=== PATIENT | female | born 1980 | race African-American/Black ===

== ENCOUNTER 2019-02-04 12:12 | Emergency (ER) | payer MEDICAID ==
[2019-02-04 12:58] VITALS: BP 116/67
--- NOTE | 2019-02-04 13:18 | UC ---
Respiratory Complaint HPI - HPI Summary HPI Summary: Cough and sore throat for one day. No fever. No itchy or watery eyes. - History of Current Complaint Chief Complaint: UCGeneralIllness Stated Complaint: COUGH,SORE THROAT Time Seen by Provider: 02/04/19 12:54 Hx Obtained From: Patient Hx Last Menstrual Period: 12/14/18 Onset/Duration: Gradual Onset, Lasting Hours Timing: Constant Severity Initially: Mild Severity Currently: Mild Pain Intensity: 2 Character: Cough: Nonproductive Aggravating Factors: Deep Breaths, Recumbent Position Alleviating Factors: Upright Position, Spontaneous Resolution Associated Signs And Symptoms: Positive: URI, Nasal Congestion. Negative: Dyspnea, Fever - Allergies/Home Medications Allergies/Adverse Reactions: Allergies Allergy/AdvReac Type Severity Reaction Status Date / Time Penicillins Allergy Swelling Verified 02/04/19 12:58 Of Face,Lips,& Throat pineapple Allergy Swelling Verified 02/04/19 12:58 Of Face,Lips,& Throat tomato Allergy Swelling Verified 02/04/19 12:58 Of Face,Lips,& Throat cholestatin Allergy Swelling Uncoded 02/04/19 12:58 Of Face,Lips,& Throat Home Medications: Home Medications Calcium Carbonate/Vitamin D3 [Calcium 600 + Vit D Tablet] 1 each PO DAILY [History Confirmed 02/04/19] Cetirizine* [ZyrTEC 10 MG TAB*] 10 mg PO DAILY 02/04/19 [History Confirmed 02/04] Tab A Dimitri Multivitamin 1 tab PO DAILY 02/04/19 [History Confirmed 02/04/19] PMH/Surg Hx/FS Hx/Imm Hx Previously Healthy: No - URI - Surgical History Surgical History: None - Family History Known Family History: Positive: Non-Contributory - Social History Alcohol Use: None Substance Use Type: None Smoking Status (MU): Heavy Every Day Tobacco Smoker Type: Cigarettes Amount Used/How Often: 1 PPD Have You Smoked in the Last Year: Yes - Immunization History Vaccination Up to Date: Yes Review of Systems All Other Systems Reviewed And Are Negative: Yes ENT: Positive: Sore Throat Respiratory: Positive: Cough Physical Exam Triage Information Reviewed: Yes Appearance: Well-Appearing, No Pain Distress, Well-Nourished Vital Signs: Initial Vital Signs Temp 97.6 F 02/04/19 12:52 Pulse 87 02/04/19 12:52 Resp 14 02/04/19 12:52 BP 116/67 02/04/19 12:52 Pulse Ox 100 02/04/19 12:52 Vital Signs Reviewed: Yes Eyes: Positive: Conjunctiva Clear. Negative: Conjunctiva Inflamed ENT: Positive: Nasal congestion, TMs normal, Uvula midline. Negative: Pharyngeal erythema, TM bulging, TM dull, TM red, Tonsillar swelling, Tonsillar exudate, Trismus Neck: Positive: Supple, Nontender, No Lymphadenopathy. Negative: Nuchal Rigidity Respiratory: Positive: Lungs clear, Normal breath sounds, No respiratory distress, No accessory muscle use. Negative: Respiratory distress, Decreased breath sounds, Accessory muscle use, Crackles, Rhonchi, Stridor, Wheezing Cardiovascular: Positive: No Murmur, Pulses Normal, Brisk Capillary Refill Abdomen Description: Positive: No Organomegaly, Soft. Negative: Distended, Guarding Musculoskeletal: Positive: Strength Intact, ROM Intact, No Edema Neurological: Positive: Alert, Muscle Tone Normal. Negative: Fatigued Psychological: Positive: Age Appropriate Behavior Skin: Negative: Rashes Respiratory Course/Dx - Differential Dx/Diagnosis Provider Diagnosis: URI (upper respiratory infection) Discharge - Sign-Out/Discharge Documenting (check all that apply): Patient Departure All imaging exams completed and their final reports reviewed: No Studies - Discharge Plan Condition: Good Disposition: HOME Prescriptions: Benzonatate CAP* [Tessalon 100 MG CAP*] 200 mg PO BID PRN #[id number] cap PRN Reason: Cough Patient Education Materials: Upper Respiratory Infection (ED) Referrals: Carmela Chakraborty NP [Primary Care Provider] - If Needed - Billing Disposition and Condition Condition: GOOD Disposition: Home
== END 2019-02-04 13:23 | disposition home or self-care (01) ==
LOC: UCCORT 12:12
DX: J06.9 Acute upper respiratory infection, unspecified (principal); F17.210 Nicotine dependence, cigarettes, uncomplicated; Z88.0 Allergy status to penicillin; Z91.018 Allergy to other foods; Z88.8 Allergy status to other drugs, medicaments and biological substances
CPT/HCPCS: 99212; G0463

== ENCOUNTER 2019-07-30 15:37 | Emergency (ER) | payer MEDICAID ==
[2019-07-30 16:40] VITALS: BP 97/62
[2019-07-30] MEDS ORDERED: Ibuprofen TAB* 600 MG PO ONE (16:59)
--- NOTE | 2019-07-30 16:59 | UC ---
Back Pain HPI - HPI Summary HPI Summary: 38-year-old woman comes in with a chief complaint of low back pain. This started 3 days ago. No known trauma. Patient points to her mid low back. When questioned she also states that she's been urinating more frequently. Denies any abdominal pain or fevers or burning with urination. She states that back pain hurts at all times. She can make it worse with different changes of position. No complaint of any weakness or numbness or difficulty controlling urine or bowels. Patient lives in a [facility]ci. - History of Current Complaint Chief Complaint: UCBackPain Stated Complaint: LOWER BACK PAIN Time Seen by Provider: 07/30/19 16:45 Hx Last Menstrual Period: "within the last month" - pt is a poor historian Pain Intensity: 10 - Allergies/Home Medications Allergies/Adverse Reactions: Allergies Allergy/AdvReac Type Severity Reaction Status Date / Time Penicillins Allergy Swelling Verified 07/30/19 16:40 Of Face,Lips,& Throat pineapple Allergy Swelling Verified 07/30/19 16:40 Of Face,Lips,& Throat tomato Allergy Swelling Verified 07/30/19 16:40 Of Face,Lips,& Throat cholestatin Allergy Swelling Uncoded 07/30/19 16:40 Of Face,Lips,& Throat Home Medications: Home Medications Fexofenadine HCl 1 tab PO DAILY 07/30/19 [History Confirmed 07/30/19] Sertraline* [Zoloft*] 50 mg PO DAILY 07/30/19 [History Confirmed 07/30/19] l-Norgest/E.estradiol-E.estrad [Camrese] 1 tab PO DAILY 07/30/19 [History Confirmed 07/30/19] PMH/Surg Hx/FS Hx/Imm Hx Previously Healthy: Yes Neurological History: Seizures - Surgical History Surgical History: Yes Surgery Procedure, Year, and Place: LEE - Family History Known Family History: Positive: Non-Contributory - Social History Alcohol Use: None Substance Use Type: None Smoking Status (MU): Heavy Every Day Tobacco Smoker Type: Cigarettes Amount Used/How Often: 1 PPD Have You Smoked in the Last Year: Yes - Immunization History Vaccination Up to Date: Yes Review of Systems All Other Systems Reviewed And Are Negative: Yes Constitutional: Positive: Negative Skin: Positive: Negative Eyes: Positive: Negative ENT: Positive: Negative Respiratory: Positive: Negative Cardiovascular: Positive: Negative Gastrointestinal: Positive: Negative Genitourinary: Positive: Frequency Motor: Positive: Negative Neurovascular: Positive: Negative Musculoskeletal: Positive: Other: - SEE HPI Neurological: Positive: Negative Psychological: Positive: Negative Is Patient Immunocompromised?: No Physical Exam Triage Information Reviewed: Yes Appearance: Well-Appearing, Well-Nourished, Pain Distress - MILD WITH ROM Vital Signs: Initial Vital Signs Temp 97.4 F 07/30/19 16:35 Pulse 76 07/30/19 16:35 Resp 18 07/30/19 16:35 BP 97/62 07/30/19 16:35 Pulse Ox 98 07/30/19 16:35 Vital Signs Reviewed: Yes Eye Exam: Normal Eyes: Positive: Conjunctiva Clear Neck: Positive: Supple Respiratory: Positive: Lungs clear, Normal breath sounds, No respiratory distress Cardiovascular: Positive: RRR Abdomen Description: Positive: Nontender, Soft. Negative: CVA Tenderness (R), CVA Tenderness (L) Musculoskeletal: Positive: Strength Intact, Other: - Patient is tender to palpation in the mid low back. Nontender to palpation of the flanks. Legs have full strength and full range of motion Neurological: Positive: Alert Psychological: Positive: Age Appropriate Behavior Skin Exam: Normal Back Pain Course/Dx - Course Course Of Treatment: Patient is most tender in the midline of the low back. Because of the patient' s special needs it does make history taking slightly more difficult. Patient denies any left-sided or right-sided pain. Denies any fevers or abdominal pain. Because the urine had white blood cells and will treat with Bactrim in case the cause of the pain is actually urinary in source. Given the midline low back tenderness to palpation it's more likely musculoskeletal and will treat with ibuprofen 600 mg every 6 hours as needed. Discussed with her caregiver that is we should have the patient follow-up within 3 days with her primary care physician and that if she worsened with fevers or she appeared ill or weakness or numbness or difficulty controlling urine or bowels or any other concerns she needs to go the emergency department. - Differential Dx/Diagnosis Provider Diagnosis: Low back pain, Pyuria Discharge ED - Sign-Out/Discharge Documenting (check all that apply): Patient Departure All imaging exams completed and their final reports reviewed: No Studies - Discharge Plan Condition: Stable Disposition: HOME Prescriptions: Sulfamethox/Trimethoprim DS* [Bactrim DS 800/160 TAB*] 1 tab PO BID #14 tab Patient Education Materials: Urinary Tract Infection in Women (ED), Acute Low Back Pain (ED) Referrals: Carmela Chakraborty NP [Primary Care Provider] - Additional Instructions: FOLLOW UP WITH YOUR DOCTOR WITHIN 3 DAYS. GO TO THE EMERGENCY DEPARTMENT IF NOT IMPROVING OR YOUR CONDITION WORSENS; PAIN , FEVER, YOU FEEL ILL, WEAKNESS, NUMBNESS, DIFFICULTY CONTROLLING BOWEL OR BLADDER OR ANY QUESTIONS OR CONCERNS. - Billing Disposition and Condition Condition: STABLE Disposition: Home
== END 2019-07-30 17:16 | disposition home or self-care (01) ==
LOC: UCCORT 15:37
DX: M54.5 Low back pain (principal); R82.81 Pyuria; Z88.0 Allergy status to penicillin; Z91.018 Allergy to other foods; Z88.8 Allergy status to other drugs, medicaments and biological substances; F17.210 Nicotine dependence, cigarettes, uncomplicated
CPT/HCPCS: 81003; 87077; 87086; 99212; A9270-GY; G0463